=== PATIENT | male | born 1990 | race Caucasian/White ===

== ENCOUNTER 2019-08-28 15:57 | Emergency (ER) | payer OTHER, SELFPAY ==
[~2019-08-28] VITALS: Ht 170.2 cm; Wt 76.1 kg
[2019-08-28 15:57] VITALS: BP 135/66
[2019-08-28] MEDS ORDERED: ESSETAB4 PO (16:06)
[2019-08-28] MEDS ORDERED: METAL LOCK LOOP XX ONE (16:34)
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
== END 2019-08-28 17:26 | disposition home or self-care (01) ==
LOC: M ED 15:57
DX: S89.92XA Unspecified injury of left lower leg, initial encounter (principal); X50.0XXA Overexertion from strenuous movement or load, initial encounter; Y92.098 Other place in other non-institutional residence as the place of occurrence of the external cause; J45.909 Unspecified asthma, uncomplicated; Z87.891 Personal history of nicotine dependence

== ENCOUNTER 2020-02-11 03:53 | Inpatient (IN) | payer OTHER ==
[~2020-02-11] VITALS: Ht 168.9 cm; Wt 69.3 kg
[~2020-02-11 03:53] MED LIST: ESSETAB4 PO
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
[2020-02-11 05:07] LABS: HEMATOCRIT 46.9 % (42.0-52.0); HEMOGLOBIN 15.3 g/dl (13.5-17.5); MEAN CORPUSCULAR HEMOGLOBIN 29.8 pg (27.0-33.0); MEAN CORPUSCULAR HGB CONC 32.6 g/dl (32.0-36.5); MEAN CORPUSCULAR VOLUME 91.2 fl (80.0-96.0); PLATELET COUNT, AUTOMATED 326 10^3/uL (150-450); RED BLOOD COUNT 5.14 10^6/uL (4.30-6.10); WHITE BLOOD COUNT 5.5 10^3/uL (4.0-10.0)
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
[2020-02-11 05:33] LABS: AMPHETAMINES LEVEL URINE NEGATIVE (NEGATIVE); BARBITURATES URINE NEGATIVE (NEGATIVE); BENZODIAZEPINES URINE NEGATIVE (NEGATIVE); CANNABINOIDS URINE POSITIVE (NEGATIVE); COCAINE METABOLITE URINE NEGATIVE (NEGATIVE); METHADONE URINE NEGATIVE (NEGATIVE); OPIATES URINE NEGATIVE (NEGATIVE); PHENCYCLIDINE URINE NEGATIVE (NEGATIVE)
[2020-02-11 05:52] LABS: ACETAMINOPHEN LEVEL < 2.0 UG/ML (10.0-30.0); ALBUMIN 4.6 GM/DL (3.2-5.2); ALT/SGPT 21 U/L (12-78); BILIRUBIN,DIRECT 0.1 MG/DL (0.0-0.2); BILIRUBIN,TOTAL 0.5 MG/DL (0.2-1.0); CPK CREATINE PHOSPHOKINASE 215 U/L (39-308); ETHYL ALCOHOL (ETHANOL) 0.187 % (0.000-0.010); SALICYLATE LEVEL 1.9 MG/DL (5.0-30.0); TOTAL PROTEIN 7.8 GM/DL (6.4-8.2)
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
--- NOTE | 2020-02-11 10:54 | REP ---
INDICATION: repeat after prev one showed abnormal findings. COMPARISON: CT at 4:10 a.m. today, MRI at 6:17 a.m. today. TECHNIQUE: Noncontrast CT along with coronal soft tissue reconstruction FINDINGS: Lateral ventricles are midline, symmetric and without dilatation or displacement. Basal ganglia symmetric and normal. The dimas-white junction differentiation is well maintained. No white matter tract abnormalities. There is no intra or extra-axial hemorrhage, mass or edema. No extra-axial fluid. Cortical stripe preserved. Brainstem and cerebellum show no abnormality or mass. Basal cisterns intact. Skull base bone windows show the mastoids and visible sinuses intact. There is no fracture of the skull base or calvarium. IMPRESSION: 1. Negative CT brain for intra or extra-axial hemorrhage, mass, edema or white matter abnormality. Stable examination. 2. No fracture skull base or calvarium, sinus or mastoid abnormality nor other acute finding. <Electronically signed by Cheko Pittman > 02/11/20 [id number]
[2020-02-11] MEDS ORDERED: THERTAB19 PO (18:01)
[2020-02-11] MEDS ORDERED: MOM 30ML SUSPENSION UDC PO PRN (18:45)
[2020-02-11] MEDS ORDERED: MAALOX 30 ML SUSP *UDC PO PRN (18:45)
[2020-02-11] MEDS ORDERED: traZODone 50 MG TAB PO PRN (18:45)
[2020-02-11] MEDS ORDERED: ACETAMINOPHEN TAB 650MG DOSE (2X325MG) PO PRN (18:45)
[2020-02-11 20:45] VITALS: BP 137/84
[2020-02-12 07:10] VITALS: BP 124/72
[2020-02-12 18:06] VITALS: BP 134/81
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
[2020-02-13 07:03] VITALS: BP 126/74
[2020-02-13] MEDS: CitaloPRAM (CeleXA) 20 MG TAB PO SCH (09:46)
[2020-02-13 18:44] VITALS: BP 131/80
[2020-02-14 06:35] VITALS: BP 104/56
[2020-02-14] MEDS: CitaloPRAM (CeleXA) 20 MG TAB PO SCH (08:22)
[2020-02-14] MEDS: BENZOCAINE 10% 9GM TUBE (ANBESOL) TOP PRN (08:39)
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
[2020-02-14 16:10] VITALS: BP 131/73
[2020-02-15 06:45] VITALS: BP 145/84
[2020-02-15] MEDS: CitaloPRAM (CeleXA) 20 MG TAB PO SCH (08:26)
--- NOTE | 2020-02-15 10:43 | MHIPNPDOC ---
[facility] Progress Note Progress Note DATE OF SERVICE: 02/15/20 Subjective HPI: Jack has met been met with and his history is reviewed in terms of what he had come in with and his treatment. The patient otherwise has been relatively well-behaved. Per staff reports, he does want to see about leaving. Objective Appearance: Appears to be stated age. Well groomed. Well nourished. Behavior: Cooperative with good eye contact. Engaged. Pleasant. Affect: Appropriate to context. Full range. Mood: Generally good. Euthymic. Appropriately reactive. Speech: Normal rate. Spontaneous and Fluid. Normal volume. Motor: No gross motor abnormalities. Cognition: Alert, Attentive, and Oriented to person, place, time. Memory: No gross abnormalities of short or salvage determiner memory noted during interview. No formal testing. Thought Form: Linear and goal directed. Thought Content: No evidence of suicidal ideation. No thoughts of self harm. No evidence of delusions. No evidence of aggressive or homicidal ideation. Perception: No perceptual abnormalities noted. Judgement: Intact as evidenced by decision making in the recent past. Insight: Good insight into symptoms and treatment options. 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 He does seem to have antisocial traits and is manipulative at times, but this appears to be a chronic trait of his and is unlikely to change on our unit. We will observe overnight and discharge. Vital Signs Vital Signs Date Time Temp Pulse Resp B/P (MAP) Pulse Ox O2 Delivery O2 Flow Rate FiO2 02/15/20 06:45 98.9 69 14 145/84 (104) 02/14/20 06:35 95 Room Air Laboratory Data 24H Labs Laboratory Tests 2 02/14/20 14:04: Lab Scanned Report Miscellaneous Lab Current Medications Current Medications Medications (Trade) Dose Ordered Sig/Estelle Route PRN Reason Start Time Stop Time Status Last Admin Dose Admin Acetaminophen (Tylenol Tab) 650 mg Q6HP PRN PO HEADACHE or DISCOMFORT 02/11/20 18:45 Al Hydrox/Mg Hydrox/Simethicone (Mylanta) 30 ml Q4HP PRN PO HEARTBURN/INDIGESTION 02/11/20 18:45 Benzocaine (Anbesol Gel) Q3HP PRN TOP PAIN 02/13/20 22:30 11/9/20 08:39 Citalopram Hydrobromide (CeleXA) 20 mg DAILY PO 02/13/20 09:00 02/15/20 08:26 Home Med (Med Rec Complete!) ASDIRECTED XX 02/11/20 18:15 02/11/20 18:12 DC Magnesium Hydroxide (Milk Of Magnesia) 30 ml DAILYPRN PRN PO CONSTIPATION 02/11/20 18:45 Trazodone HCl (Desyrel) 50 mg QHSP PRN PO INSOMNIA 02/11/20 18:45 Allergies Coded Allergies: No Known Allergies (Unverified , 08/28/19) REMY SALINAS DO Feb 15, 2020 10:43
[2020-02-15] MEDS: BENZOCAINE 10% 9GM TUBE (ANBESOL) TOP PRN (15:30)
[2020-02-15 16:34] VITALS: BP 148/70
[2020-02-16 07:21] VITALS: BP 143/80
[2020-02-16] MEDS: CitaloPRAM (CeleXA) 20 MG TAB PO SCH (08:59)
[2020-02-16] MEDS: BENZOCAINE 10% 9GM TUBE (ANBESOL) TOP PRN (09:01)
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
[2020-02-16] MEDS ORDERED: CELE20TA PO (11:08)
--- NOTE | 2020-02-17 09:28 | MHIPN ---
DATE: 02/13/2020 SUBJECTIVE: The patient today tells me that he is feeling better than yesterday. He says that his has told him that she wants to leave and he is trying to talk to her to see if she changes her mind. He did sleep okay. He is telling me he is not having suicidal thoughts today. MENTAL STATUS EXAMINATION: He is alert and oriented x3. Eye contact is fair. Psychomotor activity is normal. There is no formal thought disorder noted. Mood is better. Affect appropriate to mood. He is not psychotic, suicidal, or homicidal today. Concentration is fair. Memory intact. Insight and judgment are fair. DIAGNOSES: Unspecified depressive disorder. Cannabis use disorder. TREATMENT PLAN: At this point, we will continue to monitor the patient for continued elevation and stabilization of his mood, and continue resolution of any suicidal ideations. NAVID
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
== END 2020-02-16 13:20 | disposition home or self-care (01) | DRG 752 ==
LOC: M ED 03:53 → M ED INP 18:33 → M PSY 20:37
PROVIDERS: ADMIT Psychiatry & Neurology Psychiatry; ATTEND Psychiatry & Neurology Addiction Medicine
DX: F60.89 Other specific personality disorders (principal); F43.25 Adjustment disorder with mixed disturbance of emotions and conduct; G43.909 Migraine, unspecified, not intractable, without status migrainosus; F17.200 Nicotine dependence, unspecified, uncomplicated; M25.562 Pain in left knee

== ENCOUNTER → 2025-01-28 | Outpatient (CLI) | payer OTHER ==
[~2025-01-28] MED LIST changes: +CELE20TA PO; +THERTAB19 PO
== END ==
LOC: M RAD 13:51
PROVIDERS: ATTEND Internal Medicine Addiction Medicine
DX: M00.9 Pyogenic arthritis, unspecified (principal); M25.411 Effusion, right shoulder